=== PATIENT | female | born 2005 | race Hispanic/Latino ===

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

== ENCOUNTER 2023-05-01 20:41 | Emergency (ER) | payer OTHER, SELFPAY ==
[2023-05-01 21:09] LABS: Bacteria/HPF None Seen HPF (None Seen); Bilirubin Negative (Negative); Blood, Urine 2+ (Negative); CAUTI Indications for Culture Pelvic or flank pain; Clarity Clear (Clear); Glucose, Urine (Dipstick) Normal (Negative); Ketone, Urine Negative (Negative); Leukocyte Negative Leu/uL (Negative); Nitrite Negative (Negative); Protein, Urine (Dipstick) Negative (Neg-Trace); Specific Gravity, Urine 1.028 (1.002-1.036); Squamous Epithelial 0-3 HPF (0-3); WBC/HPF 0-3 HPF (0-3); pH, Urine 6.5 (5.0-9.0)
[2023-05-01 21:12] LABS: Urine Culture Reflex No No
[2023-05-01 21:29] LABS: #Eosinphils 0.1 thou/uL (0.0-0.7); #Monocytes 0.5 thou/uL (0.11-0.59); #Neutrophils 4.5 thou/uL (1.40-6.50); %Basophils 0.3 % (0.0-1.0); %Eosinophils 0.9 % (0.0-10.0); %Lymphocytes 22.3 % (28.0-48.0); %Monocytes 7.8 % (0.0-4.0); %Neutrophils 68.5 % (31.0-61.0); Hematocrit 37.5 % (36.0-47.0); Hemoglobin 12.9 g/dL (12.0-16.0); Mean Corpuscular HGB CONC 34.4 g/dL (32.0-36.0); Mean Corpuscular Volume 93.1 fl (78.0-98.0); Mean Platelet Volume 10.2 fL (7.4-10.4); Platelet Count 292 10x3/uL (130-400); RBC Distribution Width 12.5 % (11.5-14.5); Red Blood Cell (RBC) Count 4.03 mill/uL (4.00-5.20); White Blood Cell (WBC) Count 6.6 10x3/uL (4.8-10.8)
[2023-05-01 21:37] LABS: BHCG - Serum POSITIVE (NEGATIVE); Pregs Control Background? CLEAR/WHITE (CLR/WHITE); Pregs Control Bar Appear? YES (CONTROL BAR)
== END 2023-05-01 23:51 | disposition home or self-care (01) ==
LOC: ERS 20:41
DX: O20.0 Threatened abortion (principal); Z3A.01 Less than 8 weeks gestation of pregnancy
CPT/HCPCS: 36415; 76856; 81001; 84702; 84703; 85025; 86850; 86900; 86901

== ENCOUNTER 2023-06-26 23:26 | Emergency (ER) | payer MEDICAID, OTHER ==
[2023-06-26] MEDS ORDERED: Acetaminophen 500 MG TAB ONE (23:50)
[2023-06-26] MEDS ORDERED: Ibuprofen 200 MG TAB ONE (23:51)
[2023-06-27 00:18] LABS: SARS-CoV-2 NAA Rapid Test Not Detected (NotDetected)
== END 2023-06-27 00:45 | disposition home or self-care (01) ==
LOC: ERS 23:26
DX: J10.1 Influenza due to other identified influenza virus with other respiratory manifestations (principal); E11.9 Type 2 diabetes mellitus without complications; I10 Essential (primary) hypertension; J44.9 Chronic obstructive pulmonary disease, unspecified; Z20.822 Contact with and (suspected) exposure to COVID-19
CPT/HCPCS: 99283